=== PATIENT | female | born 1970 | race Caucasian/White ===

== ENCOUNTER → 2018-07-18 | Outpatient (CLI) | payer OTHER ==
[2016-03-27 10:20] VITALS: BMI 23.0
[~2018-07-18] MED LIST: IBU600 PO; MEC125 PO; ONDA4TAB PO; PSEU60TA80 PO
--- NOTE | 2018-07-19 10:48 | RADIOLOGY IMAGING REPORT ---
FAC[place] [facility] [place]IENT NAME: JENNIFER SANDRA : [id number] MR: [id number] V: [id number] EXAM DATE: [id number] ORDERING PHYSICIAN: REANNA BARBA TECHNOLOGIST: Pearl Rushing PROCEDURE:BILATERAL DIGITAL SCREENING MAMMOGRAM WITH CAD ASSISTED INTERPRETATION & 3D TOMOSYNTHESIS COMPARISON:Prior mammograms 07/12/17, 07/08/16, 06/22/15, 06/11/15. INDICATIONS:screening FINDINGS: Moderately heterogeneous fibroglandular tissue is seen throughout the breasts. The parenchymal pattern has remained stable allowing for difference in mammographic technique & patient positioning. Biopsy clip in the medial anterior portion of the Right breast again seen. There is no demonstration of malignant appearing mass, malignant appearing calcifications or other secondary sign of malignancy in either breast. DIAGNOSTIC CATEGORY 2--BENIGN FINDING. RECOMMENDATIONS: ROUTINE MAMMOGRAM AND CLINICAL EVALUATION. IMPRESSION: BIRADS 2: Benign finding. No significant abnormality is seen. Dictated by: Karyna Macias M.D. on 07/18/2018 at 14:34 Transcribed by: GHULAM on 07/18/2018 at 14:41 Approved by: Karyna Macias M.D. on 07/19/2018 at 10:46 [facility]
== END ==
LOC: MAMO 01:42
PROVIDERS: ATTEND Nurse Practitioner Psychiatric/Mental Health
DX: Z12.31 Encounter for screening mammogram for malignant neoplasm of breast (principal); Z80.3 Family history of malignant neoplasm of breast
CPT/HCPCS: 77063; 77067